=== PATIENT | female | born 2000 | race Caucasian/White ===

== ENCOUNTER → 2025-01-03 10:50 | Outpatient (REF) | payer BC, SELFPAY | LOC: DHSLP 10:50 | PROVIDERS: ATTENDING PHYSICIAN Internal Medicine Critical Care Medicine; FAMILY PHYSICIAN Physician Assistant Medical | DX: G47.30 Sleep apnea, unspecified (principal); R06.83 Snoring | CPT/HCPCS: 95800 ==